=== PATIENT | male | born 1975 | race Caucasian/White ===

== ENCOUNTER 2016-11-29 12:49 | Emergency (ER) | payer OTHER ==
[2016-11-29 14:03] LABS: BUN/CREATININE RATIO 12 (0-10)
[2016-11-29 14:17] LABS: HEMOGLOBIN 13.9 gm/dl (14.0-17.5); RED BLOOD COUNT 6.95 M/UL (4.20-5.50); WHITE BLOOD COUNT 6.8 K/UL (4.5-11.0)
== END 2016-11-29 16:20 | disposition home or self-care (01) ==
LOC: ER1 12:49
PROVIDERS: Emergency Medicine
DX: R07.89 Other chest pain (principal)
CPT/HCPCS: 36415; 71020; 80053; 82550; 82553; 83874; 84484; 85025; 85379; 93005; 99285; J7050; Q9963

== ENCOUNTER → 2017-01-03 | Outpatient (CLI) | payer OTHER | LOC: HEART 5 12-22 09:30 | DX: R07.89 Other chest pain (principal) | CPT/HCPCS: 93306 ==

== ENCOUNTER → 2021-10-28 | Outpatient (CLI) | payer OTHER | LOC: KOH-I 09:48 | DX: R06.89 Other abnormalities of breathing (principal) | CPT/HCPCS: 71046 ==